=== PATIENT | male | born 2000 | race Hispanic/Latino ===

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

== ENCOUNTER 2023-01-28 22:47 | Emergency (ER) | payer MEDICAID, OTHER ==
[~2023-01-28] VITALS: Ht 180.3 cm; Wt 104.3 kg
[2023-01-28 23:02] VITALS: BP 160/116; PULSE 80; RESP 16; O2SAT 97
[2023-01-28 23:36] LABS: BASOPHILS # (AUTO) 0.08 K/uL (0.00-0.20); BASOPHILS % (AUTO) 0.7 % (0.0-5.0); EOSINOPHILS # (AUTO) 0.14 K/uL (0.00-0.70); EOSINOPHILS % (AUTO) 1.3 % (0.0-8.0); HEMATOCRIT 45.5 % (42-54); IMMATURE GRANULOCYTE ABSOLUTE 0.03 K/uL (0-1); LYMPHOCYTES # (AUTO) 2.1 K/uL (1.0-4.8); LYMPHOCYTES % (AUTO) 19.7 % (21.0-51.0); MEAN CORPUSCULAR HGB CONC 34.1 g/dL (32.0-36.0); MEAN CORPUSCULAR VOLUME 85.2 fL (79-99); MONOCYTES # (AUTO) 0.8 K/uL (0.1-1.0); NEUTROPHILS # (AUTO) 7.6 K/uL (1.8-7.7); PLATELET COUNT (AUTO) 266 K/uL (130-400); RED BLOOD CELL COUNT(AUTO) 5.34 MIL/uL (4.50-6.20); RED CELL DISTRIBUTION WIDTH 12.5 % (11.0-15.5); WHITE BLOOD COUNT (AUTO) 10.7 K/uL (4.8-10.8)
[2023-01-28 23:37] LABS: APPEARANCE,URINE CLEAR (CLEAR); BILIRUBIN,URINE NEGATIVE (NEGATIVE); COLOR,URINE YELLOW (YELLOW); GLUCOSE, URINE (UA) NEGATIVE (NEGATIVE); KETONES,URINE 100 mg/dL (NEGATIVE); LEUKOCYTE ESTERASE ,URINE NEGATIVE Leu/uL (NEGATIVE); NITRATE,URINE NEGATIVE (NEGATIVE); OCCULT BLOOD,URINE NEGATIVE (NEGATIVE); PH,URINE 5.5 (5.0-8.0); PROTEIN,URINE 30 mg/dL (NEGATIVE)
[2023-01-28 23:38] LABS: ADD UA MICROSCOPIC YES; MUCUS,URINE MANY LPF (None Seen); SQUAMOUS EPITHELIAL CELL,UR RARE /HPF (0-2); WBC,URINE 0-1 /HPF (0-1)
[2023-01-28 23:47] LABS: POTASSIUM 3.7 mmol/L (3.5-5.1)
[2023-01-28] MEDS ORDERED: ONDA4TAB10 PO (23:49)
[2023-01-28 23:52] LABS: ALBUMIN 4.7 g/dL (3.5-5.0); BILIRUBIN,TOTAL 0.7 mg/dL (0.2-1.0); TOTAL PROTEIN, SERUM 8.5 g/dL (6.0-8.3)
== END 2023-01-29 00:05 | disposition home or self-care (01) ==
LOC: EDH 22:47
DX: A08.4 Viral intestinal infection, unspecified (principal); Z87.19 Personal history of other diseases of the digestive system
CPT/HCPCS: 36415; 80053; 81001; 83690; 85025

== ENCOUNTER 2023-07-28 00:30 | Emergency (ER) | payer BC ==
[~2023-07-28] VITALS: Ht 180.3 cm; Wt 107.0 kg
[~2023-07-28 00:30] MED LIST: OMEP20TA2 PO; ONDA4TAB10 PO; SERT100T PO
[2023-07-28 05:34] LABS: BASOPHILS # (AUTO) 0.08 K/uL (0.00-0.20); EOSINOPHILS # (AUTO) 0.28 K/uL (0.00-0.70); EOSINOPHILS % (AUTO) 3.4 % (0.0-8.0); HEMATOCRIT 45.2 % (42-54); IMMATURE GRANULOCYTE ABSOLUTE 0.02 K/uL (0-1); LYMPHOCYTES # (AUTO) 3.3 K/uL (1.0-4.8); LYMPHOCYTES % (AUTO) 39.3 % (21.0-51.0); MEAN CORPUSCULAR HEMOGLOBIN 29.1 pg (27.0-33.0); MEAN CORPUSCULAR HGB CONC 34.5 g/dL (32.0-36.0); MEAN CORPUSCULAR VOLUME 84.2 fL (79-99); MONOCYTES # (AUTO) 0.6 K/uL (0.1-1.0); MONOCYTES % (AUTO) 7.5 % (3.0-13.0); NEUTROPHILS % (AUTO) 48.6 % (40.0-77.0); PLATELET COUNT (AUTO) 262 K/uL (130-400); RED BLOOD CELL COUNT(AUTO) 5.37 MIL/uL (4.50-6.20); RED CELL DISTRIBUTION WIDTH 12.7 % (11.0-15.5); WHITE BLOOD COUNT (AUTO) 8.3 K/uL (4.8-10.8)
[2023-07-28 05:50] LABS: ALBUMIN 4.1 g/dL (3.5-5.0); BILIRUBIN,TOTAL 0.6 mg/dL (0.2-1.0); CREATININE 0.8 mg/dL (0.5-1.5); POTASSIUM 4.7 mmol/L (3.5-5.1); TOTAL PROTEIN, SERUM 8.2 g/dL (6.0-8.3)
[2023-07-28] MEDS ORDERED: PANT40TA54 PO (10:32)
[2023-07-28 11:16] VITALS: BP 124/62; PULSE 78; RESP 16; O2SAT 100
== END 2023-07-28 11:30 | disposition home or self-care (01) ==
LOC: EDH 00:30
DX: K92.1 Melena (principal); Z79.899 Other long term (current) drug therapy; Z98.890 Other specified postprocedural states
CPT/HCPCS: 36415; 80053; 82270; 85025

== ENCOUNTER 2024-10-06 03:41 | Emergency (ER) | payer BC ==
[~2024-10-06] VITALS: Ht 180.3 cm; Wt 108.9 kg
[~2024-10-06 03:41] MED LIST changes: +ONDA-243 PO; -ONDA4TAB10 PO; +PANT40TA54 PO
--- NOTE | 2024-10-06 03:53 | NUR ---
PATIENT REFUSED TO SIGN CONSENT FOR BLOOD DRAW, LAW ENFORCEMENT TO OBTAIN WARRENT AT THIS TIME.
[2024-10-06 05:11] VITALS: BP 129/77; PULSE 90; RESP 20; TEMP 98.9; O2SAT 97
--- NOTE | 2024-10-06 05:11 | NUR ---
MANJEETENT OBTAINED, BLOOD DRAW PERFORMED.
--- NOTE | 2024-10-06 05:20 | ERN ---
ED Note History of Present Illness Stated Complaint: BLOOD DRAW Chief Complaint: Mandatory Blood Draw Time Seen by MD: 03:49 Dictation: This is a 24-year-old male brought by [facility] troopers for medical clearance and mandatory blood draw for patient hold by law enforcement. Patient complained of only leg pains because he was doing a lot of squats . Temperature 98.1 pulse 111 respirations 20 blood pressure 138/77 pulse oximetry 98-100% on room air Patient is handcuffed in the front both upper extremities Allergies: Coded Allergies: No Known Drug Allergies (Unverified Allergy, Unknown, 01/28/23) Home Meds Active Scripts Pantoprazole Sodium (Pantoprazole Sodium) 40 Mg Tablet., 40 MG PO DAILY, #30 TAB Prov:SHELL PAGE MD 07/28/23 Omeprazole Magnesium (Prilosec Otc) 20 Mg Tablet., 20 MG PO DAILY, #30 TAB Prov:JOSE DALLAS MD 02/14/23 Sertraline HCl (Zoloft) 100 Mg Tablet, 100 MG PO DAILY, #30 TAB Prov:JOSE DALLAS MD 02/14/23 Ondansetron (Ondansetron Odt) 4 Mg Tab.rapdis, 4 MG PO TID PRN for NAUSEA, #12 TAB Prov:MATILDA DILLARD 01/28/23 Past Medical History Past Medical History: No Pertinent History Additional Past Medical Hx: GASTRITIS Surgical History: None Family History: Negative Social History: ETOH, Lives alone RN Note Reviewed/Agreed w/PFSH: Yes Review of System Dictation Constitutional: Negative for fever,chills, and weight loss Eyes: Negative for injury, pain,redness, and discharge ENT: Negative for injury,pain or swelling Cardiovascular: Negative for chest pain, palpitations, and edema Respiratory: Negative for shortness of breath, cough, and wheezing, Abdomen/GI: Negative for abdominal pain, nausea, vomiting, diarrhea, and constipation Back: Negative for injury and pain : Negative for injury, bleeding and discharge MS/Extremity: Negative for injury and deformity positive for leg pains Skin: Negative for rash, and discoloration Neuro: Negative for headache, weakness, numbness, tingling, and seizure Psych: Negative for suicide ideation, homicidal ideation, and hallucinations Initial Vital Sign VS Vital Signs Date Time Temp Pulse Resp B/P (MAP) Pulse Ox O2 Delivery O2 Flow Rate FiO2 10/06/24 03:43 98.1 111 20 138/77 100 Room Air 10/06/24 03:56 0 21 Physical Exam Dictation General: awake, alert, NAD generally anxious, sweating Head/Face: Normocephalic, atraumatic Eyes: PERRL, EOMI, vision at baseline ENT: oral cavity clear, TMs clear, no signs of infection Neck: Trachea midline, supple, no nuchal rigidity Cardiovascular: RRR, normal S1/S2, No MRGs, no JVD Respiratory: CTAB, no respiratory distress, No rales or wheezes Abdomen: Soft, non-tender, non-distended, normal bowel sounds, no guarding or rebound. Skin: Warm, dry, normal turgor, no rash MS/Extremity: Pulses equal, no cyanosis, neurovascular intact, FROM Neuro: COAx4, GCS 15, strength 5/5, CN 2-12 intact, normal cerebellar exam, normal gait, Psych: Normal behavior, mood, and affect normal Extremities-trace edema without any palpable cords, Homans sign is negative ED Course ED Course Vital Signs Date Time Temp Pulse Resp B/P (MAP) Pulse Ox O2 Delivery O2 Flow Rate FiO2 10/06/24 05:11 99.0 90 20 129/77 97 Room Air* 0 21 10/06/24 03:56 98.6 109 20 132/71 96 Room Air* 0 21 10/06/24 03:43 98.1 111 20 138/77 100 Room Air Patient has a warrant for mandatory blood draw per DPS . Medically cleared from my standpoint Medical Decision Making MDM MDM: Differential diagnosis: Medical clearance-behavioral issue, alcohol intoxication, recreational drug abuse Rationale: Tests considered and ordered secondary to shared decision making include: Previous outside records reviewed: Old ER visits. Risk of complication and/or morbidity or mortality of patient management: None Medications-Per medication reconciliation Need for hospitalization: Patient does not meet criteria for hospitalization. Need for emergency major/minor surgery: No There are no social concerns with this patient. Prescription drug management Prescriptions will include symptomatic care Patient's prior external medical records from other ER visits were reviewed by me as indicated. Prior testing and results from previous visits were reviewed. Prior tests were taken into account with medical decision making and resource utilization, independent historian/historians were used to obtain complete medical history. I independently interpreted the test that were performed, results were reviewed by me and considered findings on radiology if ordered. Medical management and examination interpretation discussions were had by me with other qualified healthcare professionals as indicated for the patient's care. DX & DISP Disposition: Discharge Departure Impression: Primary Impression: Encounter for medical clearance for patient hold Condition: Stable Additional Instructions: Patient and the caregiver have been informed of all the diagnostic tests and the imaging conducted during the today's visit to the emergency room and has verbalized understanding of the results I have personally reviewed and interpreted all diagnostic exams performed here in the ER today as well as the vital signs documented by the nursing staff. The patient is now being discharged to law enforcement and should follow up with the primary care physician or the specialist as directed by the ER staff. Referrals: SELF,REFERRAL (PCP) ANALILIA TORIBIO MD October 06, 2024 05:20
== END 2024-10-06 05:25 | disposition home or self-care (01) ==
LOC: EEVIPCON 03:41 → EDH 03:41
DX: M79.606 Pain in leg, unspecified (principal); Z02.89 Encounter for other administrative examinations; Z79.899 Other long term (current) drug therapy; Z87.19 Personal history of other diseases of the digestive system
CPT/HCPCS: 99283